=== PATIENT | male | born 1990 | race Caucasian/White ===

== ENCOUNTER 2019-03-19 14:27 | Emergency (ER) | payer SELFPAY ==
[~2019-03-19] VITALS: Ht 172.7 cm; Wt 73.0 kg
[2019-03-19 15:25] VITALS: BP 129/77
== END 2019-03-19 16:17 | disposition home or self-care (01) ==
LOC: ER 16:00
DX: Z76.0 Encounter for issue of repeat prescription (principal); F31.9 Bipolar disorder, unspecified; F17.210 Nicotine dependence, cigarettes, uncomplicated; F41.9 Anxiety disorder, unspecified
CPT/HCPCS: 99281